=== PATIENT | female | born 1985 | race Hispanic/Latino ===

== ENCOUNTER 2016-04-10 12:18 | Emergency (ER) | payer MEDICARE ==
[2016-04-10] MEDS ORDERED: LaMICtal PO ONE (12:49)
[2016-04-10] MEDS ORDERED: KEPPRA 1,000 MG/NS 0.75% 100ML 1,000 MG/100 ML BAG IV ONE (12:49)
[2016-04-10] MEDS ORDERED: TORADOL IV ONE (12:50)
[2016-04-10] MEDS ORDERED: NACL 0.9% 1000 ML 1,000 ML IV ONE (12:53)
--- NOTE | 2016-04-10 12:54 | Emergency Department Report ---
ED Seizure HPI - General Chief Complaint: Seizure Stated Complaint: SEIZURES Time Seen by Provider: 04/10/16 12:41 Source: EMS Mode of arrival: Ambulatory Limitations: No Limitations - History of Present Illness Initial Comments: 30-year-old female with a past medical history of seizures and previous craniotomy presents to the hospital after a seizure while at [employer]. Patient currently alert and oriented 3. Patient states she typically gets a "funny feeling" preceding her seizures. Sometimes she gets the "funny feeling" without seizure activity. There are no reports of how long seizure lasted. Patient was apparently postictal combative at the scene upon EMS arrival. The stick 129. Patient reports a last seizure was March 30 and on average she has 1-2 seizures a week for the past 7-8 years. Patient is compliant with her Keppra and Lamictal but did not have her a.m. dose today. Patient states that when she was on Vimpat her seizures they well controlled and she had one to 2 a month however, when she moved to [place] from [place] she was unable to afford the Vimpat due to lack of insurance. She is currently uninsured and can' t get the medication but states she is apprehensive about trying it again because while taking Vimpat and Celexa she had nausea and dizziness. She is unsure as to which medication caused the symptoms at the time. Patient claims of 5/10 frontal headache since seizure. No aggravating or alleviating factors reported. Denies tongue laceration or urinary incontinence. - Related Data Previous Rx's Medication Instructions Recorded Last Taken Type lamoTRIgine [LaMICtal] 200 mg PO BID #60 tablet 05/21/14 1 Day Ago Rx levETIRAcetam [Keppra TAB] 500 mg PO BID #60 tablet 05/21/14 1 Day Ago Rx Lacosamide [Vimpat] 100 mg PO Q12HR #90 tablet 04/10/16 Unknown Rx Allergies Allergy/AdvReac Type Severity Reaction Status Date / Time No Known Allergies Allergy Verified 05/21/14 16:27 ED Review of Systems ROS: Stated complaint: SEIZURES Other details as noted in HPI Comment: All other systems reviewed and negative Other: Constitutional: No fevers chills Eyes: No eye pain visual changes ENT: No ear pain or throat pain Neck: Denies pain Respiratory: Denies cough wheezing shortness of breath Cardiovascular: Denies chest pain, palpitations, syncope GI: Denies abdominal pain, nausea, vomiting, diarrhea : Denies dysuria Musculoskeletal: Denies back pain, Skin: Denies rash, lesions, erythema Neurologic: Denies numbness, weakness Psychiatric: Denies suicidal ideation, hallucinations ED Past Medical Hx - Past Medical History Hx Seizures: Yes - Surgical History Additional Surgical History: EEG for evaluation of seizures. craniotomy 2 years ago - Social History Smoking Status: Never Smoker Substance Use Type: None - Medications Home Medications: Home Medications Medication Instructions Recorded Confirmed Last Taken Type lamoTRIgine [LaMICtal] 200 mg PO BID #60 tablet 05/21/14 04/10/16 1 Day Ago Rx levETIRAcetam [Keppra TAB] 500 mg PO BID #60 tablet 05/21/14 04/10/16 1 Day Ago Rx Lacosamide [Vimpat] 100 mg PO Q12HR #90 tablet 04/10/16 Unknown Rx ED Physical Exam - General Limitations: No Limitations - Other Other exam information: General: No limitations, patient is alert in no acute distress Head exam: Atraumatic, normocephalic Eyes exam: Normal appearance, pupils equal reactive to light, extraocular movements intact ENT: Moist mucous membrane, normal oropharynx Neck exam: Normal inspection, full range of motion, no meningismus nontender Respiratory exam: Clear to auscultation bilateral, no wheezes, rales, crackles Cardiovascular: Normal rate and rhythm, normal heart sounds Abdomen: Soft, nondistended, and nontender, with normal bowel sounds, no rebound, or guarding Extremity: Full range of motion normal inspection no deformity Back: Normal Inspection, full range of motion, no tenderness Neurologic: Alert, oriented x3, cranial nerves intact, no motor or sensory deficit Psychiatric: normal affect, normal mood Skin: Warm, dry, intact ED Course Vital Signs 04/10/16 04/10/16 04/10/16 12:31 12:36 14:09 Temperature 98.1 F Pulse Rate 110 H 89 Respiratory 16 16 Rate Blood Pressure 140/70 Blood Pressure 112/74 [Right] O2 Sat by Pulse 99 Oximetry - Reevaluation(s) Reevaluation #1: 04/10/16 12:55 IV Keppra by mouth Lamictal ordered. Toradol ordered for pain and 1 L normal saline for tachycardia - Consultations Consultation #1: 04/10/16 13:00 Case d/w Dr Rodriguez neurologist. Agree with plan to restart Vimpat since pt was better controlled with this medication 04/10/16 14:13 ED Medical Decision Making - Lab Data Result diagrams: 04/10/16 13:13 04/10/16 13:13 Lab Results 04/10/16 04/10/16 Range/Units 13:13 13:13 WBC 9.4 (4.5-11.0) K/mm3 RBC 4.07 (3.65-5.03) M/mm3 Hgb 12.5 (10.1-14.3) gm/dl Hct 38.3 (30.3-42.9) % MCV 94 (79-97) fl MCH 31 (28-32) pg MCHC 33 (30-34) % RDW 12.9 L (13.2-15.2) % Plt Count 244 (140-440) K/mm3 Sodium 137 (137-145) mmol/L Potassium 4.3 (3.6-5.0) mmol/L Chloride 100.3 (98-107) mmol/L Carbon Dioxide 22 (22-30) mmol/L Anion Gap 19 mmol/L BUN 8 (7-17) mg/dL Creatinine 0.6 L (0.7-1.2) mg/dL Estimated GFR > 60 ml/min BUN/Creatinine Ratio 13.33 % Glucose 94 (65-100) mg/dL Calcium 8.6 (8.4-10.2) mg/dL Magnesium 1.9 (1.7-2.3) mg/dL - Medical Decision Making Patient remained at baseline during ED visit and tolerated her seizure medication that was ordered. She will be discharged on Vimpat this to her current medication for further seizure control. She is willing to retry this medication and will continue to monitor the side effects. - Differential Diagnosis brick to seizure, medication noncompliance, electrolyte abnormality Critical Care Time: No Critical care attestation.: If time is entered above; I have spent that time in minutes in the direct care of this critically ill patient, excluding procedure time. ED Disposition Clinical Impression: Seizure Disposition: DISCHARGED TO HOME OR SELFCARE Is pt being admited?: No Does the pt Need Aspirin: No Condition: Stable Instructions: Epilepsy (ED) Additional Instructions: Take the medication as prescribed. Follow up with our neurologist. Return if symptoms worsen. Prescriptions: Lacosamide [Vimpat] 100 mg PO Q12HR #90 tablet Referrals: your, neurologist [Other] - 3-5 Days Time of Disposition: 14:14
[2016-04-10 13:33] LABS: Hematocrit 38.3 % (30.3-42.9); Hemoglobin 12.5 gm/dl (10.1-14.3); Mean Corpuscular HGB Conc 33 % (30-34); Mean Corpuscular Hemoglobin 31 pg (28-32); Mean Corpuscular Volume 94 fl (79-97); Platelet Count 244 K/mm3 (140-440); Red Blood Count 4.07 M/mm3 (3.65-5.03); Red Cell Distribution Width 12.9 % (13.2-15.2); White Blood Count 9.4 K/mm3 (4.5-11.0)
[2016-04-10 13:41] LABS: BUN/Creatinine Ratio 13.33; Blood Urea Nitrogen 8 mg/dL (7-17); Calcium 8.6 mg/dL (8.4-10.2); Carbon Dioxide 22 mmol/L (22-30); Glucose 94 mg/dL (65-100); Magnesium 1.9 mg/dL (1.7-2.3)
[2016-04-10 13:42] LABS: Anion Gap 19 mmol/L; Chloride 100.3 mmol/L (98-107); Potassium 4.3 mmol/L (3.6-5.0); Sodium 137 mmol/L (137-145)
[2016-04-10 14:10] VITALS: BP 112/74
== END 2016-04-10 14:22 | disposition home or self-care (01) ==
LOC: ED 12:18
DX: R56.9 Unspecified convulsions (principal)
CPT/HCPCS: 36415; 80048; 83735; 85027; 96365; 96375; 99284; J1885; J1953; J7030